=== PATIENT | male | born 1985 | race Caucasian/White ===

== ENCOUNTER 2017-10-15 16:54 | Emergency (ER) | payer OTHER ==
[~2017-10-15] VITALS: Ht 182.9 cm; Wt 93.7 kg
[2017-10-15 17:01] VITALS: BP 124/69; PULSE 92; RESP 16; TEMP 98.8; O2SAT 97
[2017-10-15] MEDS ORDERED: ACETAMINOPHEN/HYDROcodone 325 MG/5 MG TAB PO ONE (17:15)
[2017-10-15] MEDS ORDERED: NAPR250T4 PO (17:19)
[2017-10-15] MEDS ORDERED: FLUT1SPR5 EACH NARE (17:19)
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
[2017-10-15] MEDS ORDERED: KETOROLAC TROMETHAMINE 60 MG/2 ML (IM) VIAL IM ONE (18:00)
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
[2017-10-15] MEDS ORDERED: diphenhydrAMINE HCL 25 MG CAP PO ONE (20:45)
[2017-10-15] MEDS ORDERED: PRED20 PO (21:01)
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
== END 2017-10-15 21:10 | disposition left against medical advice (07) ==
LOC: PHEFT 16:54
DX: S13.4XXA Sprain of ligaments of cervical spine, initial encounter (principal); V43.52XA Car driver injured in collision with other type car in traffic accident, initial encounter; M50.20 Other cervical disc displacement, unspecified cervical region
CPT/HCPCS: 70450; 72125; 72141; 96372; 99284; J1885